=== PATIENT | female | born 1960 | race Caucasian/White ===

== ENCOUNTER → 2020-12-06 15:24 | Outpatient (CLI) | payer OTHER, SELFPAY ==
[2020-12-06 17:04] LABS: Vitamin D,25 Hydroxy 13.3 ng/mL
[2020-12-06 17:11] LABS: Free T3 2.6 pg/mL (2.18-3.98); T4 Free Direct 0.88 ng/dL (0.76-1.46); Thyroid Stim Hormone (TSH) 0.66 uIU/mL (0.358-3.74)
[2020-12-06 17:12] LABS: BNP,B-Type NATRIURETIC PEPTIDE 15.7 pg/mL (0-100)
[2020-12-06 17:14] LABS: Hemoglobin A1c 5.8 % (3.8-5.6)
[2020-12-08 16:09] LABS: Thyroid Peroxidase AB 13 IU/mL (0-34)
[2020-12-09 10:34] LABS: Thyroglobulin Antibody < 1.0 IU/mL (0.0-0.9)
== END ==
PROVIDERS: PCP Internal Medicine; Referring Provider Internal Medicine; Visit Provider Internal Medicine
DX: E78.5 Hyperlipidemia, unspecified (principal); I10 Essential (primary) hypertension; R53.83 Other fatigue; R06.00 Dyspnea, unspecified
CPT/HCPCS: 36415; 82306; 83036; 83880; 84439; 84443; 84481; 86376; 86800

== ENCOUNTER → 2020-12-10 09:33 | Outpatient (CLI) | payer SELFPAY, OTHER ==
--- NOTE | 2020-12-10 09:37 | STEWCON_ITS ---
Reason For Study: DYSPNEA/SOB Stress Results Protocol: Robbie Protocol WITH DEFINITY Maximum Predicted HR: 162 bpm Target HR: 138 bpm % Maximum Predicted HR: 102 % DurationHeart Rate Stage (mm:ss) (bpm) BP Comment BASELINE 80 122/724 CC DEFINITY TOTAL FOR TEST STAGE 1 3:00 162 148/84SOB, FATIGUE, NO CHEST PAIN STAGE 2 0:52 166 / INCREASED SOB, NO CHEST PAIN RECOVERY 112 132/70 Stress Duration: 3:52 mm:ss Maximum Stress HR: 166 bpm METS: 5 Baseline Echocardiogram Findings Stress Echo Wall motion Data Resting WM Intermediate WM Stress WM Resting Wall Motion Wall Motion Stress All segments Normal. All segments Hyperkinetic. Ejection Fraction 60 %. Ejection Fraction 70 %. Stress Results Heart rate response: Appropriate Blood pressure response: Normal resting blood pressure-appropriate response Arrhythmias: None Functional capacity: Decreased Stop secondary to: Dyspnea and fatigue. EKG Data Baseline ECG: Normal sinus rhythm. Peak exercise ECG: Somatic/motion artifact with no obvious ECG changes. Symptoms with Stress No complaint of chest discomfort during exercise or recovery. ECHO/Stress Test Echo W/Contrast Interpretation Summary Contrast injection performed Negative (adequate) stress echocardiogram Ordering Physician: Keon^Ave^^^ Referring Physician: Ave Herbert Performed By: Tonia Jackson, RDCS, RVT
== END ==
PROVIDERS: PCP Internal Medicine; Referring Provider Internal Medicine; Visit Provider Internal Medicine
DX: R06.00 Dyspnea, unspecified (principal); R53.83 Other fatigue; I10 Essential (primary) hypertension; E78.5 Hyperlipidemia, unspecified
CPT/HCPCS: 93017; 93350; Q9957; A4216; C8928

== ENCOUNTER → 2020-12-24 09:19 | Outpatient (CLI) | payer SELFPAY, OTHER ==
--- NOTE | 2020-12-24 09:22 | EKG12_ITS ---
Test Reason : DYSPNEA Blood Pressure : / mmHG Vent. Rate : 077 BPM Atrial Rate : 077 BPM P-R Int : 162 ms QRS Dur : 084 ms QT Int : 380 ms P-R-T Axes : 045 044 067 degrees QTc Int : 430 ms Normal sinus rhythm Nonspecific ST and T wave abnormality Abnormal ECG Confirmed by LELAND CABALLERO, AMERICA ([id number]), associate entertainment editor CON OCONNOR ([id number]) on 12/27/2020 1:13:22 PM Referred By: Ave Herbert Confirmed By:AMERICA HA MD
--- NOTE | 2020-12-24 09:22 | RAD_ITS ---
STUDY: X-RAY CHEST REASON FOR EXAM: Female, 60 years old. Dyspnea on exertion, chronic cough TECHNIQUE: PA and lateral views of the chest. COMPARISON: None. FINDINGS: The lungs are clear and expanded. There is no demonstrated pleural abnormality. Normal size heart. Normal mediastinum and mark. Normal visualized pulmonary arteries. Normal visualized aortic arch and descending thoracic aorta. Normal visualized thoracic spine. Normal visualized ribs, clavicles, and shoulders. There is no demonstrated abnormality of the visualized soft tissue structures of the upper abdomen. RAD/Chest PA and Lateral IMPRESSION: Normal x-ray examination of the chest. Electronically Signed: Fidel Kaplan MD at 10:07 EDT , Service support ,
== END ==
PROVIDERS: PCP Internal Medicine; Referring Provider Internal Medicine; Visit Provider Internal Medicine
DX: R06.09 Other forms of dyspnea (principal); R53.83 Other fatigue
CPT/HCPCS: 71046; 93005

== ENCOUNTER 2021-04-13 12:43 | Outpatient (CLI) | payer SELFPAY, OTHER ==
[2021-04-13 13:34] LABS: Absolute Lymphocyte Count 1.16 X10^3/uL (0.83-4.51); Absolute Neutrophil Count 1.7 X10^3/uL (2.0-7.7); Basophil# 0.02 X10^3/uL; Basophil% 0.6 % (0-1); Eosinophil# 0.02 X10^3/uL; Eosinophils% 0.6 % (0-5); Hematocrit 48.6 % (37-47); Hemoglobin 16.5 g/dL (12.0-15.0); Lymphocyte # 1.16 X10^3/ul (0.83-4.51); Lymphocyte % 33.3 % (19-41); Mean Corpuscular Hgb 30.7 pg (27.0-32.0); Mean Corpuscular Volume 90.3 fL (81-99); Mean Platelet Vol. 10.4 fl (6.2-12.0); Monocyte# 0.55 X10^3/uL; Monocyte% 15.8 % (0-10); NRBC Flagged by Analyzer 0 % (0-5); Neutrophil # 1.72 X10^3/uL (2.7-7.7); Neutrophil % 49.4 % (47-70); Platelet Count 210 K/mm3 (150-450); RBC Distribution Width CV 12.6 % (11.6-14.6); RBC Distribution Width SD 41.7 fl (35.1-43.9); Red Blood Count 5.38 M/mm3 (4.2-5.4); White Blood Count 3.5 K/mm3 (4.4-11.0)
[2021-04-13 13:49] LABS: Anion Gap 6 (5-15); BUN 9 mg/dL (7-18); BUN/Creat Ratio 11.7 RATIO (10-20); Calcium,Total 8.4 mg/dL (8.5-10.1); Chloride 104 mmol/L (98-107); Creatinine, Serum 0.77 mg/dL (0.55-1.02); EST Glomerular Filtration Rate 82 mL/min (>60); Est Glom Filt Rate - Afr Amer 99 mL/min (>60); Glucose 106 mg/dL (74-106); Magnesium 2.4 mg/dL (1.6-2.6); Potassium 3.3 mmol/L (3.5-5.1); Sodium Level 140 mmol/L (136-145)
--- NOTE | 2021-04-14 13:16 | PFT ---
INTRODUCTION: The patient is a 60-year-old female that presents for pulmonary function studies secondary to a diagnosis of exertional dyspnea. Respiratory therapy reported good patient effort. Bronchodilators were used during testing. INTERPRETATION: Forced expiration spirometry demonstrates no evidence of a large airways obstructive ventilatory defect. There was no significant response to aerosolized bronchodilators. Spirograms are of fair quality and terminate prior to 6 seconds, likely underestimating FVC. Body plethysmography was performed and reveals lung volumes to be within normal limits. Diffusing capacity by single breath CO is also within normal limits at 95% of predicted. IMPRESSION: Grossly normal pulmonary function studies.
== END 2021-04-13 23:59 | disposition short-term general hospital (02) ==
PROVIDERS: PCP Family Medicine; Referring Provider Internal Medicine Cardiovascular Disease; Visit Provider Internal Medicine Cardiovascular Disease
DX: I10 Essential (primary) hypertension (principal); E78.5 Hyperlipidemia, unspecified; R94.31 Abnormal electrocardiogram [ECG] [EKG]; R53.83 Other fatigue; R06.00 Dyspnea, unspecified
CPT/HCPCS: 36415; 80048; 83735; 85025; 94060; 94726; 94729

== ENCOUNTER 2021-04-26 13:40 | Outpatient (CLI) | payer SELFPAY, OTHER ==
--- NOTE | 2021-04-26 13:41 | ECHOD_ITS ---
Reason For Study: Dyspnea/SOB Procedure This was a 2D Doppler, Color Flow transthoracic echocardiogram. The study was technically difficult. Exam performed in department. Left Ventricle Normal LV size. Left ventricular systolic function is normal. The estimated ejection fraction is 60 %. No evidence for diastolic dysfunction. No regional wall motion abnormalities noted. Right Ventricle Normal RV size. Normal systolic function. Atria Normal left atrium. Normal right atrium. No doppler evidence for ASD. Mitral Valve There is no mitral annular calcification. Normal mitral valve. Trivial mitral valve insufficiency. Tricuspid Valve Normal tricuspid valve. Trivial tricuspid valve insufficiency. Unable to estimate RV systolic pressure/pulmonary artery pressure due to technically difficult study. Aortic Valve The aortic valve is not well visualized. Pulmonic Valve The pulmonic valve is not well visualized. Great Vessels Normal sized aortic root. Pericardium/Pleural No pericardial effusion. MMode/2D Measurements & Calculations LVIDd: 4.2 cm IVSd: 1.1 cm Ao root diam: 3.0 cm LVIDs: 2.8 cm LVPWd: 1.1 cm LA dimension: 3.7 cm RVDd: 2.8 cm FS: 33.4 % LAV(MOD-bp): 36.3 ml LA A4 area: 14.7 cm2 RA A4 area: 7.9 cm2 LAV(MOD-bp) Indexed: 19.7 ml/m2 LAV(MOD-sp2): 27.2 ml LAV(MOD-sp4): 40.1 ml Time Measurements MV dec time: 0.20 sec Doppler Measurements & Calculations MV E max atul: 105.3 cm/sec Lat Peak E' Atul: 9.4 cm/sec Med Peak E' Atul: 7.0 cm/sec MV A max atul: 83.4 cm/sec E/E' lat: 11.2 E/E' med: 15.0 MV E/A: 1.3 MV V2 max: 104.2 cm/sec MV P1/2t max atul: 104.8 cm/sec Ao V2 max: 141.5 cm/sec MV max P.3 mmHg MV P1/2t: 83.7 msec Ao max P.0 mmHg MV V2 mean: 66.9 cm/sec MV dec slope: 366.6 cm/sec2 MV mean P.0 mmHg MVA(P1/2t): 2.6 cm2 MV V2 VTI: 25.9 cm LV V1 max: 131.7 cm/sec PA V2 max: 105.9 cm/sec LV V1 max P.9 mmHg ECHO/Echo Complete Interpretation Summary The study was technically difficult. Left ventricular systolic function is normal. The estimated ejection fraction is 60 %. Trivial mitral valve insufficiency. Trivial tricuspid valve insufficiency. Unable to estimate RV systolic pressure/pulmonary artery pressure due to techni germán difficult study. No evidence for diastolic dysfunction. Ordering Physician: Yan Esparza Referring Physician: Colton Ling Performed By: Erik Marti RCS
[2021-04-26 17:33] LABS: Anion Gap 6 (5-15); BUN 12 mg/dL (7-18); BUN/Creat Ratio 16.6 RATIO (10-20); Calcium,Total 8.7 mg/dL (8.5-10.1); Chloride 107 mmol/L (98-107); Creatinine, Serum 0.72 mg/dL (0.55-1.02); EST Glomerular Filtration Rate 88 mL/min (>60); Est Glom Filt Rate - Afr Amer 106 mL/min (>60); Glucose 77 mg/dL (74-106); Potassium 3.5 mmol/L (3.5-5.1); Sodium Level 141 mmol/L (136-145)
== END 2021-04-26 23:59 | disposition home or self-care (01) ==
PROVIDERS: PCP Family Medicine; Referring Provider Internal Medicine Cardiovascular Disease; Visit Provider Internal Medicine Cardiovascular Disease
DX: R06.02 Shortness of breath (principal); R94.31 Abnormal electrocardiogram [ECG] [EKG]; R53.83 Other fatigue; I10 Essential (primary) hypertension; E87.6 Hypokalemia; E78.5 Hyperlipidemia, unspecified
CPT/HCPCS: 36415; 80048; 93306

== ENCOUNTER 2021-05-03 11:12 | Outpatient (RCR) | payer OTHER, SELFPAY ==
[2021-05-03 12:32] LABS: Prothrombin Time (Protime)PT. 12.4 SECONDS (11.7-14.9)
[2021-05-03 12:33] LABS: Partial Thromboplast Time 34.6 Seconds (24.1-36.2)
== END 2021-05-03 23:59 | disposition home or self-care (01) ==
LOC: LAB 11:12
PROVIDERS: PCP Family Medicine; Visit Provider Internal Medicine Cardiovascular Disease
DX: I10 Essential (primary) hypertension (principal); R94.31 Abnormal electrocardiogram [ECG] [EKG]; E78.5 Hyperlipidemia, unspecified; R53.83 Other fatigue; R06.09 Other forms of dyspnea
CPT/HCPCS: 36415; 85610; 85730

== ENCOUNTER 2021-05-09 06:41 | Day surgery (SDC) | payer SELFPAY, OTHER ==
[2021-05-06 08:00] VITALS: BMI 38.0
--- NOTE | 2021-05-06 16:59 | PCM.HP.BLA ---
History and Physical Date of Admission: 05/09/21 [facility] [id number] [place], [place] [id number] OFFICE VISITDate of Service: 04/07/21 MR#:[id number]: BLOSSOM VERDE ARep #:[id number]:[id number] Provider:Caitie Conner/Sex: 60/F [facility] HPI History of Present Illness Details: This is a a 60 old white female who presents today for outpatient cardiovascular consultation based upon concerns of fatigue and shortness of breath/dyspnea on exertion superimposed upon a history of hypertension with findings concerning for an abnormal ECG. She has been evaluated by her primary care physician Dr. Ling as well as by general internal medicine with Dr. Carey. She has had thyroid studies performed which appeared to be unremarkable. She had an ECG that demonstrated sinus rhythm with nonspecific ST segment abnormality. In November 2020 she underwent a stress echocardiogram. This was thought to be negative with respect to evidence of stress-induced myocardial ischemia (please see report below). In December 2020 she had a chest x-ray performed which was reported as unremarkable per radiology. She states she has been fatigued and she has noted shortness of breath and dyspnea on exertion for at least a year or longer. She does not recall any ongoing chest discomfort with these symptoms. She denies orthopnea or PND or peripheral pitting edema. There has been no report of palpitations, near-syncope, or syncope. She states Dr. Ling has checked her lipid labs in the past. She believes they have been under good control. She takes medication for her blood pressure which appears to be reasonably well controlled today. She had a follow-up ECG in the office today. She remains in sinus rhythm with subtle nonspecific ST segment abnormality. 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 Required: No Accompanied by: Self Is patient in pain?: No Allergies No Known Allergies Allergy (Unverified 04/07/21 14:52) Medications telmisartan 40 mg tablet 40 mg PO DAILY 12/06/20 [History Confirmed 04/07/21] [facility] Medical History Depressive disorder Depressive disorder, not elsewhere classified Essential hypertension Hyperlipidemia KATHRYN on CPAP Surgical History S/P cervical spinal fusion Family History Father CAD (coronary artery disease) History of coronary artery bypass surgery Heart valve replaced Mother Pulmonary fibrosis Social History Smoking Status: Never smoker alcohol intake: never substance use type: does not use caffeine: No ROS Const Const: Negative for fatigue, weakness, frequent falls, excessive sweating, weight gain or weight loss Eyes Eyes: Negative for transient loss of vision, blurry vision or change in vision ENT ENT: Negative for dizziness or balance problems Cardio Chest Pain: No Palpitations: No Edema: None Muscle aches with walking: None Resp Respiratory: Positive for SOB with activity (occasional); Negative for SOB at rest GI GI: Negative vomiting or vomiting blood/hematemesis : Negative for hematuria Musc Musc: Negative for muscle aches/ myalgia, muscle weakness, joint pain or balance problems Skin Skin: Negative non-healing lesions or rash Neuro Neuro: Negative for dizziness, lightheadedness, orthostatic symptoms, frequent falls, weakness or blurry vision Kevin Hematologic/Lymphatic: Negative for easy bleeding Endo Endo: Negative for fatigue or excessive sweating Psych Psych: Negative for anxiety or depression Allergy Allergy/Immunology: Negative for hives and Negative for rash Cardiology Exam Const Appearance: cooperative, healthy appearing, comfortable, no acute distress, well developed and well groomed Nutritional Appearance: obese Orientation: alert, awake and oriented x3 Head Head: normal to inspection, normocephalic and atraumatic Ears: hearing grossly normal bilaterally Nose: external nose normal Eyes Eyelids: eyelids normal Conjunctivae: conjunctivae normal Pupils: PERRL EOM: EOM intact bilaterally Neck Neck: normal visual inspection and full ROM Carotids: normal carotid upstroke Chest Chest inspection: normal inspection of the chest, symmetric chest movement and normal respiratory effort Auscultation: Bilateral: Clear to Auscultation Cardio Palpation: normal PMI Rate: regular rate Rhythm: regular rhythm Heart sounds: S1 normal and S2 normal GI GI: normal to inspection, soft, bowel sounds present and obese Neuro General: patient alert, patient awake, patient oriented x3 and moves all extremities Skin Skin: no rashes or lesions noted Extremities Pulses: Normal: Right Radial Pulse and Left Radial Pulse Lower Extremity Edema: None: Bilateral Psych Psychological: normal affect Supplemental Info Supplemental Information Reason For Study: DYSPNEA/SOB Stress Results Protocol: Robbie Protocol WITH DEFINITY Maximum Predicted HR: 162 bpm Target HR: 138 bpm % Maximum Predicted HR: 102 % DurationHeart Rate Stage (mm:ss) (bpm) BP Comment BASELINE 80 122/724 CC DEFINITY TOTAL FOR TEST STAGE 1 3:00 162 148/84SOB, FATIGUE, NO CHEST PAIN STAGE 2 0:52 166 / INCREASED SOB, NO CHEST PAIN RECOVERY 112 132/70 Stress Duration: 3:52 mm:ss Maximum Stress HR: 166 bpm METS: 5 Baseline Echocardiogram Findings Stress Echo Wall motion Data Resting WM Intermediate WM Stress WM Resting Wall Motion Wall Motion Stress All segments Normal. All segments Hyperkinetic. Ejection Fraction 60 %. Ejection Fraction 70 %. Stress Results Heart rate response: Appropriate Blood pressure response: Normal resting blood pressure-appropriate response Arrhythmias: None Functional capacity: Decreased Stop secondary to: Dyspnea and fatigue. EKG Data Baseline ECG: Normal sinus rhythm. Peak exercise ECG: Somatic/motion artifact with no obvious ECG changes. Symptoms with Stress No complaint of chest discomfort during exercise or recovery. ECHO/Stress Test Echo W/Contrast Interpretation Summary Contrast injection performed Negative (adequate) stress echocardiogram Labs: No Data to Display Diagnostics: Electrocardiogram Stress Echocardiogram Chest X-Ray Pulmonary: No Data to Display Assessment and Plan Assessment and Plan (1) Abnormal ECG: Status: Acute Orders: Orders: 12 Lead EKG performed by [facility] [place] Today Basic Metabolic Profile (BMP) Today Magnesium Today Echo Complete Today CBC W/Diff, Automated Today Pulmonary Function Test (Comp) Today Plan - Dr. Yan Esparza MD: She does have an abnormal ECG based upon the ST segment changes. Thus far she has not been found to have a definitive cardiovascular issue to explain this. (2) Fatigue: Status: Acute Orders: Orders: Basic Metabolic Profile (BMP) Today Magnesium Today Echo Complete Today CBC W/Diff, Automated Today Pulmonary Function Test (Comp) Today Plan - Dr. Yan Esparza MD: She remains tired and fatigued. There are no other laboratory studies available. Would not be unreasonable to check her basic labs with respect to CBC BMP, etc. to look for any obvious hematologic issues that may contribute to this or underlying metabolic issues that may contribute to this. She is also going to have a follow-up transthoracic echocardiogram to evaluate her entire cardiac anatomy and physiology with respect to any obvious abnormalities that may contribute to her symptoms. (3) Dyspnea on exertion: Status: Acute Orders: Orders: Basic Metabolic Profile (BMP) Today Magnesium Today Echo Complete Today CBC W/Diff, Automated Today Pulmonary Function Test (Comp) Today Plan - Dr. Yan Esparza MD: She has already undergone a chest x-ray and a stress echocardiogram. The results are as noted. She will be asked to have a CBC performed to evaluate for any obvious evidence of anemia that may be contributing to her symptoms At the present time it may be reasonable to perform PFTs to evaluate for any obvious obstructive or restrictive (based upon her body habitus) findings that would contribute to her shortness of breath and dyspnea on exertion. (4) Hyperlipidemia: Status: Acute Orders: Orders: Basic Metabolic Profile (BMP) Today Magnesium Today Echo Complete Today CBC W/Diff, Automated Today Pulmonary Function Test (Comp) Today Plan - Dr. Yan Esparza MD: A copy of her lipid labs from Dr. Barahona be requested for continuity of care. (5) Essential hypertension: Status: Acute Orders: Orders: 12 Lead EKG performed by [facility] [place] [place] Today Basic Metabolic Profile (BMP) Today Magnesium Today Echo Complete Today CBC W/Diff, Automated Today Pulmonary Function Test (Comp) Today Plan - Dr. Yan Esparza MD: She will continue her current antihypertensive therapy. Plan Details Additional Comments: If over time there is no obvious explanation for her symptoms based upon laboratory studies, her noninvasive cardiac and noncardiac studies, etc., and there is still any concern as to whether the possibility of CAD exists despite the results of her stress echocardiogram to explain her symptoms and findings, then she may need further evaluation in the cardiac catheterization laboratory. The above was discussed with her and she was agreeable to this approach. Thank you for allowing me to participate in the care of your patient. Please don't hesitate to call if any issues arise. This note was generated using a voice recognition system and there may be incorrect words, spelling or punctuation that were not noted when reviewing the office note prior to saving. Follow Up: 6 Weeks (PFM ) 04/07/21 (Dr. Ling: copy of lipid labs) COVID (Procedure Consent) Procedure Criteria Procedure Criteria: Yes Elective The surgeon/proceduralist and patient have discussed in detail the risk of exposure to and/or potential harm posed by the COVID-19 virus with having a surgery/procedure at this time versus the risk of delaying the surgery/procedure. It is not possible to know either the risk of delaying the surgery or procedure or chance of getting an infection with perfect accuracy, but a joint decision was made between the patient and the surgeon/proceduralist to proceed at this time with the scheduled surgery/procedure as indicated on the consent form. Coding Level of Care Code Off vis,new,level 5 Diagnoses Abnormal ECG R94.31 Fatigue R53.83 Dyspnea on exertion R06.00 Hyperlipidemia E78.5 Essential hypertension I10 Coding Level of Care Code Off vis,new,level 5 Diagnoses Abnormal ECG R94.31 Fatigue R53.83 Dyspnea on exertion R06.00 Hyperlipidemia E78.5 Essential hypertension I10 04/07/21 1543<Electronically signed by Yan Esparza MD>Date Yan Esparza MD Cosigner Signature:Date (if applicable) CC: Dr. Ave Herbert MD; Dr. Colton Ling, DO Assessment & Plan Addt'l Comments Addendum: The patient underwent additional noninvasive evaluation with a transthoracic echocardiogram on 04/26/2021 (please see results below) and PFTs on 04/14/2021 (please see results below). Interpretation Summary The study was technically difficult. Left ventricular systolic function is normal. The estimated ejection fraction is 60 %. Trivial mitral valve insufficiency. Trivial tricuspid valve insufficiency. Unable to estimate RV systolic pressure/pulmonary artery pressure due to technically difficult study. No evidence for diastolic dysfunction. PFTs: INTRODUCTION: The patient is a 60-year-old female that presents for pulmonary function studies secondary to a diagnosis of exertional dyspnea. Respiratory therapy reported good patient effort. Bronchodilators were used during testing. INTERPRETATION: Forced expiration spirometry demonstrates no evidence of a large airways obstructive ventilatory defect. There was no significant response to aerosolized bronchodilators. Spirograms are of fair quality and terminate prior to 6 seconds, likely underestimating FVC. Body plethysmography was performed and reveals lung volumes to be within normal limits. Diffusing capacity by single breath CO is also within normal limits at 95% of predicted. IMPRESSION: Grossly normal pulmonary function studies. Based upon review of the patients history and findings and clinical concerns she has been offered further cardiac evaluation with diagnostic right / left cardiac catheterization procedure. The procedure and risks were discussed with the patient. She grants consent. I have re-examined the patient. There are no clinical changes since date of exam
[2021-05-09 08:26] LABS: Base Excess 2 mmol/L (-2 to +2); Bicarbonate 26.8 mmol/L (22-26); Blood Gas Specimen Type ART; PO2 67 mmHG (75-100); SO2 93 % (95-99); Total Carbon Dioxide 28 mmol/L; pH 7.38 (7.35-7.45)
[2021-05-09 08:45] LABS: Blood Gas Specimen Type VEN; VBG BASE EXCESS 3 mmol/L (-1.0-3.5); VBG Bicarbonate 29 mmol/L (22-26); VBG PO2 39 mmHg (25-40); VBG SO2 71 % (50-70); VBG TCO2 30 mmol/L (23-33); VBG pCO2 49.7 mmHg (41-51); VBG pH 7.37 (7.32-7.42)
[2021-05-09 09:16] LABS: Blood Gas Specimen Type VEN; VBG BASE EXCESS -2 mmol/L (-1.0-3.5); VBG Bicarbonate 23 mmol/L (22-26); VBG PO2 40 mmHg (25-40); VBG SO2 74 % (50-70); VBG TCO2 24 mmol/L (23-33); VBG pH 7.37 (7.32-7.42)
[2021-05-09 09:16] LABS: Blood Gas Specimen Type VEN; VBG BASE EXCESS 2 mmol/L (-1.0-3.5); VBG Bicarbonate 27 mmol/L (22-26); VBG PO2 37 mmHg (25-40); VBG SO2 68 % (50-70); VBG TCO2 29 mmol/L (23-33); VBG pCO2 48.4 mmHg (41-51); VBG pH 7.36 (7.32-7.42)
--- NOTE | 2021-05-09 09:53 | CL.D_ITS ---
Patient Name: BLOSSOM VERDE Study Date: 05/09/2021 Performing: Yan Esparza MD Ht: 59.84 inches 152 cm : 1960 Wt: 194.01 lbs 88 kg Age: 60 Gender: female BSA: 1.84 PROCEDURE(S) PERFORMED DC05-(55451)RHC/LHC/COR/LV CLINICAL PROFILE AND INDICATIONS Indications: Suspected CAD Heart Failure: None Stress/Imaging Date: 12/10/2020tress Echocardiogram: Negative Angina Classification Anginal Classification w/in 2 Weeks: Anginal Equivalent Dyspnea CAD Presentations: Other: dyspnea on exertion; fatigue CONCLUSIONS Right heart pressures - Normal The patient has normal pulmonary hemodynamics. Intracardiac shunting: None Elevated Left Ventricular End Diastolic Pressure (mild) Normal LV size, wall motion,and systolic function LVEF: by LV gram 65 % Normal coronary arteries RECOMMENDATIONS Risk factor modification Medical therapy DESCRIPTION OF PROCEDURE The patient arrived to the procedure lab. The risks and benefits of the procedure as well as a full d escription of our services here and current unavailability of surgical backup were fully explained to the patient and/or their significant other prior to the catheterization. The Timeout was completed, verifying the correct patient and procedure. The patient's procedural site was prepped and draped in the usual fashion. Local anesthetic was given subcutaneously to right brachial region with Lidocaine 2%. Local anesthetic was given subcutaneously to right radial region with Lidocaine 2%. Using a modif ied Seldinger technique, arterial access was obtained via the right radial artery, a 6Fr sheath was i nserted. Venous access was obtained via the right brachiocephalic vein, a 7Fr sheath was inserted. A 7Fr thermal dilution catheter was inserted and right heart pressures were recorded, it was then advan elle to PA position for cardiac outputs. Thermal dilution cardiac outputs were then recorded. O2 saturations were then obtained. Left Ventriculography was performed in [place] projection us ing a 5 Fr. Pigtail catheter. LV to AO pullback pressures were then recorded. The Thermal dilution ca theter was then removed. Left Coronary Artery selective angiography was performed in multiple views u sing a 5 Fr. JL3.5 catheter. Right Coronary Artery selective angiography was then performed in multip le views using a 5 Fr. JR 4 catheter.The arterial sheath was pulled and a TR Band was applied for hem ostasis. The venous sheath was then pulled and manual compression applied until hemostasis achieved CORONARY ANGIOGRAPHY DOMINANCE: Right Dominant LEFT HEART ASSESSMENT Left Ventricular Ejection Fraction: by LV Gram 65 % Normal LV wall motion Elevated Left Ventricular End Diastolic Pressure LVEDP: 15 mmHg RIGHT HEART ASSESSMENT Thermal CO: 5.39 Thermal CI: 2.93 Bob CO: 5.74 Bob CI: 3.12 PW: 14 11 PA: 30/8 18 RV: 28/2 7 RA: 11/22 4 PVR: 104 SVR: 1514 Aortic Valve Area: >3.50 Aortic Valve Index: 1.9 Aortic Valve Mean Gradient: 6.4 Mitral Valve Area: >3.50 Mitral Valve index: 1.9 Mitral Valve Mean Gradient: 10.5 Right Heart pressures - normal Intracardiac shunting: None LEFT MAIN: Angiographically normal LEFT ANTERIOR DESCENDING ARTERY: Angiographically normal CIRCUMFLEX ARTERY: Angiographically normal RIGHT CORONARY ARTERY: Angiographically normal AORTIC ROOT: Angiographically normal COMPLICATIONS No Complications PROCEDURE MEDICATIONS Versed 1 mg IV Fentanyl 50 mcg IV Versed 1 mg IV Fentanyl 50 mcg IV Heparin given IA 05/09/2021 08:45:36 Nitro 100 mcg IC 05/09/2021 09:22:46 Verapamil 2.5mg, Ntg 100mcgs, 3000 units of Heparin given IA 05/09/2021 08:45:36 SUMMARY OF HEMODYNAMIC DATA Time AIR REST ECG 07:06:25 RA 9/6 (4) SV 08:39:24 RV 28/2, 7 08:39:45 PW (11) PV 08:40:13 PA 30/8 (18) PA 08:40:47 LV 134/-2, 15 09:03:38 PW (11) 09:03:38 LV 127/-2, 16 09:03:45 PW 16 (12) 09:03:45 LV 133/8, 17 09:05:38 PW (17) 09:05:38 LV 129/8, 19 09:05:45 PW (17) 09:05:45 LVp 139/2, 21 09:06:01 AOp 157/85 (113) 09:06:06 AO 145/80 (106) SA 09:06:15 PA 34/11 (24) 09:06:36 RV 35/6, 12 09:06:55 RA 14/11 (9) 09:09:09 AO 133/79 (105) 09:23:47 Valve Area (c P-P/ms Time AIR REST Mitral 3.50 10.5 mn/174 ms 09:03:45 Aortic 3.50 6.4 mn/58 ms 09:06:01 Type SV CO (l/m) CI (l/m/ HR Time AIR REST Thermal 65.70 5.39 2.93 82 07:06:25 Bob 70.00 5.74 3.12 82 07:06:25 Label % O2 Pres/Loc Time AIR REST AO 93 PV 09:15:50 PA 71 PA 09:16:14 RA 74 SV 09:16:25 IVC 68 09:16:41 Signed By Yan Esparza MD On 05/09/2021 09:52:25 Yan Esparza MD
== END 2021-05-09 23:59 | disposition home or self-care (01) ==
PROVIDERS: PCP Family Medicine; Referring Provider Internal Medicine Cardiovascular Disease; Visit Provider Internal Medicine Cardiovascular Disease
DX: R94.31 Abnormal electrocardiogram [ECG] [EKG] (principal); R06.09 Other forms of dyspnea; R53.83 Other fatigue; I10 Essential (primary) hypertension; E78.5 Hyperlipidemia, unspecified; E66.9 Obesity, unspecified; G47.33 Obstructive sleep apnea (adult) (pediatric); Z82.49 Family history of ischemic heart disease and other diseases of the circulatory system
CPT/HCPCS: 82803; 93460; 99152; 99153; J7040; C1751; C1769; C1894; Q9967

== ENCOUNTER 2021-06-01 12:35 | Outpatient (CLI) | payer SELFPAY, OTHER ==
--- NOTE | 2021-06-01 12:39 | MRI_ITS ---
We are attempting to reach an attending provider to discuss findings. An addendum with communication details will be sent when the communication is complete. STUDY: MRI BRAIN WITH AND WITHOUT CONTRAST REASON FOR EXAM: Female, 60 years old. LOSS OF VISION LEFT EYE TECHNIQUE: Standardized multiplanar fat and water weighted pulse sequences were obtained. IV 18cc dotarem was administered for the contrast portion of the examination. COMPARISON: None. 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 Anterior cerebral arteries are located along the dorsal margin of the mass. The mass extends into the suprasellar cistern. Chiasm is mildly depressed inferiorly. There is probably tumor bilaterally in the supraorbital fissures. Exact relationship of the tumor to optic nerves is difficult to evaluate on general brain exam. The tumor is in contact with superior portions of the paraclinoid carotid. Carotid flow voids are preserved. The tumor does not extend through the cribriform plate into the ethmoid sinus. There is local osseous hypertrophic benign reaction along the planum and anterior clinoid. The tumor is in contact with the medial superior portions of the orbital beaver. Exact relationship between the tumor and orbits with respect to local invasion can be reevaluated for on dedicated orbital imaging. Most of the parenchymal margin is well demarcated. However, portions of brain tumor interface are not well seen due to motion related artifact. Ventricles are normal size with frontal horn compression. There is compression of anterior corpus callosum. Third and fourth ventricles are normal. 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 Neurosurgical consultation is advised. Mass effect on the chiasm, refer to dedicated MR orbits/sella for delineation of tumor/optic nerve relationship and possible local intraorbital extension. Contact between the tumor and ACAs and ICAs without vascular occlusion. Additional dedicated imaging can be performed to evaluate for possible partial vascular encasement if surgical therapy is contemplated. Electronically Signed: Crystal Javier MD at 14:48 EDT ,
[2021-06-01 13:06] LABS: CREATININE FINGERSTICK < 0.6 mg/dL (0.55-1.02); EGFR FINGERSTICK > 60.0000 mL/min (>60)
== END 2021-06-01 23:59 | disposition home or self-care (01) ==
PROVIDERS: PCP Family Medicine; Referring Provider Nurse Practitioner Family; Visit Provider Nurse Practitioner Family
DX: D32.0 Benign neoplasm of cerebral meninges (principal); H54.7 Unspecified visual loss
CPT/HCPCS: 70553; A9575; A4216

== ENCOUNTER 2021-06-01 15:16 | Emergency (ER) | payer OTHER, SELFPAY ==
[2021-06-01 15:17] VITALS: BP 150/74; PULSE 87; RESP 16; TEMP 36.6; O2SAT 95; BMI 37.0
--- NOTE | 2021-06-01 15:29 | EX.ED.DYSGE1 ---
HPI History of Present Illness Chief Complaint: Neuro S/Sx Detail of Chief Complaint: Vision changes Informant: patient and spouse/S.O. Onset/Context/Timing Onset: Weeks (3) Context: Gradual Onset Timing: Continuous Quality: Blurry Location: Left eye mostly Current Severity: Severe Maximum Severity: Severe Worsened by: nothing Relieved by: nothing Associated Symptoms Associated Symptoms: none Narrative Narrative: Patient brought to the ER from MRI for abnormal imaging showing a large brain mass and they were unable to get a hold of anyone in the office, patient states the office is closed on Wednesdays which is probably why. Patient was being worked up as an outpatient because of abnormal vision for the last 3 weeks gradual in onset mostly blurring in the left eye, she can see light in in all benavides, and her right eye mostly is pretty good she states. She already saw an eye doctor and then her doctor sent her for this MRI. 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 She denies any other neurologic symptoms. No problems with balance or walking or strength or sensory in her arms or legs. She does have occasional mild frontal headaches, but states she had those occasionally before the vision problems as well. [facility] Medical History Depressive disorder Depressive disorder, not elsewhere classified Essential hypertension Hyperlipidemia Hypokalemia KATHRYN on CPAP Home Medications telmisartan 40 mg tablet 40 mg PO DAILY 12/06/20 [History Last Taken 05/09/21] atorvastatin 20 mg tablet 20 mg PO QHS #30 tab 04/08/21 [Rx Last Taken Unknown] potassium chloride 20 mEq tablet,extended release 20 meq PO .COMPLEX #30 tab 04/15/21 [Rx Last Taken Unknown] aspirin 81 mg tablet,delayed release 81 mg PO DAILY 05/03/21 [History Last Taken 05/09/21] Allergy/AdvReac Type Severity Reaction Status Date / Time No Known Allergies Allergy Unverified 06/01/21 15:17 Family History Father CAD (coronary artery disease) History of coronary artery bypass surgery Heart valve replaced Mother Pulmonary fibrosis Surgical History History of left heart catheterization (LHC) (~05/09/21) S/P cervical spinal fusion Social History Smoking Status: Never smoker alcohol intake: never substance use type: does not use caffeine: No ROS ROS ED Constitutional Constitutional ED: Denies chills or fever(s) Eyes Eyes: Reports as per HPI, blurry vision left and change in vision; Denies diplopia ENT ENT ED: Denies rhinorrhea or sore throat Cardiovascular Cardiovascular: Denies chest pain or palpitations Respiratory/Chest Respiratory/Chest: Denies cough or dyspnea Gastrointestinal Gastrointestinal: Denies abdominal pain, diarrhea, nausea or vomiting Genitourinary Genitourinary ED: Denies dysuria or hematuria Musculoskeletal Musculoskeletal: Denies back pain or neck pain Integumentary Denies abscess or rash Neurologic Neurologic: Reports headache(s); Denies paresthesias or weakness Psychiatric Psychiatric: Denies anxiety or suicidal thoughts EXAM Physical Exam Const Vital Signs: 06/01/21 15:17 06/01/21 16:34 06/01/21 18:00 Temperature 97.9 F Temperature Source Temporal Pulse Rate 87 86 83 Respiratory Rate 16 14 Blood Pressure 150/74 H 137/83 H 139/73 H Blood Pressure Mean 99 101 95 Pulse Ox 95 99 Oxygen Delivery Method Room Air Room Air 06/01/21 20:28 Temperature Temperature Source Pulse Rate 88 Respiratory Rate 19 H Blood Pressure 138/67 H Blood Pressure Mean 90 Pulse Ox 97 Oxygen Delivery Method Positive well nourished and well developed General Appearance ED: well developed and NAD HEENT Reports moist mucous membranes normocephalic and atraumatic Eyes PERRL and EOMs intact bilaterally Eyes Narrative: No APD Neck full ROM and supple Resp normal respiratory effort and clear to auscultation bilaterally Cardio regular rate, regular rhythm and no murmurs GI non-tender and non-distended Auscultation: normoactive bowel sounds Palpation: soft Back/Spine no CVA tenderness General Back: other FROM Extremity normal to inspection General Extremety ED: Negative for edema, pulses abnormal or tenderness General Extremity: Negative for edema or pulses abnormal Neuro oriented x3, CN's II-XII intact bilaterally, no sensory deficits noted, deep tendon reflexes 2+ bilaterally and gait normal Neuro Narrative: Normal [id number] and lynk-fz-byaw bilaterally Sensorium / Orientation: awake and alert Motor Exam: strength 5/5 throughout Skin no rashes or lesions noted and no wounds MDM MDM MDM Narrative Medical decision making narrative: Review the images and the radiology report, which includes the presence of bilateral frontal lobe vasogenic edema associated with the mass, and compression of part of the optic chiasm. I discussed with neurosurgery at [facility], he advised sending the patient there in transfer for further evaluation and treatment. Discussed with family they are comfortable with that plan. Patient transferred by ground. Lab Data Attestation: I reviewed the patient's lab results. Labs: Laboratory Results - last 24 hr 06/01/21 06/01/21 06/01/21 15:50 15:50 16:08 WBC 8.2 RBC 4.50 Hgb 14.0 Hct 42.3 MCV 94.0 MCH 31.1 MCHC 33.1 RDW Std Deviation 45.1 H RDW Coeff of Rachna 13.2 Plt Count 243 MPV 10.4 Immature Gran % (Auto) 0.200 Neut % (Auto) 76.2 H Lymph % (Auto) 12.6 L [place] % (Auto) 9.3 Eos % (Auto) 1.2 Baso % (Auto) 0.5 Absolute Neuts (auto) 6.2 Absolute Lymphs (auto) 1.03 Nucleated RBC % 0 Sodium 141 Potassium 3.6 Chloride 110 H Carbon Dioxide 28.0 Anion Gap 3 L BUN 14 Creatinine 0.76 Estim Creat Clear Calc 57.96 Est GFR (MDRD) Af Amer 100 Est GFR (MDRD) Non-Af 83 BUN/Creatinine Ratio 18.4 Glucose 109 H Calcium 8.4 L POC Glucose 145 H Radiography Diagnostic Testing: MRI/Brain W/WO Contrast IMPRESSION: 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 Neurosurgical consultation is advised. Mass effect on the chiasm, refer to dedicated MR orbits/sella for delineation of tumor/optic nerve relationship and possible local intraorbital extension. Contact between the tumor and ACAs and ICAs without vascular occlusion. Additional dedicated imaging can be performed to evaluate for possible partial vascular encasement if surgical therapy is contemplated. Electronically Signed: Crystal Javier MD at 14:48 EDT Discharge Plan Triage Chief Complaint: Neuro S/Sx ED Provider: Benton Culp Dx/Rx/DC Orders Clinical Impression: Meningioma, cerebral, Alteration in vision Prescriptions: No Action telmisartan 40 mg tablet 40 mg PO DAILY RF: 0 aspirin [Adult Low Dose Aspirin] 81 mg tablet,delayed release (DR/EC) 81 mg PO DAILY RF: 0 atorvastatin 20 mg tablet 20 mg PO QHS Qty: 30 RF: 12 potassium chloride 20 mEq tablet extended release 20 meq PO .COMPLEX Qty: 30 RF: 12 Primary Care Provider: Colton Ling Referrals: Colton Ling DO [Primary Care Provider] - Disposition Disposition: Acute Care Hospital Discharge Location: [facility] Discharge Date/Time: 06/01/21 20:30
[2021-06-01 15:52] VITALS: BMI 38.5
[2021-06-01 16:10] LABS: Absolute Lymphocyte Count 1.03 X10^3/uL (0.83-4.51); Absolute Neutrophil Count 6.2 X10^3/uL (2.0-7.7); Basophil# 0.04 X10^3/uL; Basophil% 0.5 % (0-1); Eosinophils% 1.2 % (0-5); Hematocrit 42.3 % (37-47); Lymphocyte # 1.03 X10^3/ul (0.83-4.51); Lymphocyte % 12.6 % (19-41); Mean Corp Hgb Conc 33.1 g/dL (32-36); Mean Corpuscular Hgb 31.1 pg (27.0-32.0); Mean Platelet Vol. 10.4 fl (6.2-12.0); Monocyte# 0.76 X10^3/uL; Monocyte% 9.3 % (0-10); NRBC Flagged by Analyzer 0 % (0-5); Neutrophil # 6.22 X10^3/uL (2.7-7.7); Neutrophil % 76.2 % (47-70); Platelet Count 243 K/mm3 (150-450); RBC Distribution Width CV 13.2 % (11.6-14.6); RBC Distribution Width SD 45.1 fl (35.1-43.9); White Blood Count 8.2 K/mm3 (4.4-11.0)
[2021-06-01 16:15] LABS: Bedside Glucose 145 mg/dL (74-106)
[2021-06-01 16:25] LABS: Anion Gap 3 (5-15); BUN 14 mg/dL (7-18); BUN/Creat Ratio 18.4 RATIO (10-20); Calcium,Total 8.4 mg/dL (8.5-10.1); Chloride 110 mmol/L (98-107); Creatinine, Serum 0.76 mg/dL (0.55-1.02); EST Glomerular Filtration Rate 83 mL/min (>60); Est Glom Filt Rate - Afr Amer 100 mL/min (>60); Estimated Creatinine Clearance 57.96 ml/min; Glucose 109 mg/dL (74-106); Potassium 3.6 mmol/L (3.5-5.1); Sodium Level 141 mmol/L (136-145)
[2021-06-01 16:34] VITALS: BP 137/83; PULSE 86
[2021-06-01 18:00] VITALS: BP 139/73; PULSE 83; RESP 14; O2SAT 99
--- NOTE | 2021-06-01 18:28 | ED.RN ---
PH[facility]ANS ETA 2-3 HOURS
--- NOTE | 2021-06-01 18:49 | ED.RN ---
Report called to [facility], . Informed patient spouse of visitation hours being 8a-8p.
[2021-06-01 20:28] VITALS: BP 138/67; PULSE 88; RESP 19; O2SAT 97
== END 2021-06-01 20:30 | disposition short-term general hospital (02) ==
LOC: ED 15:45
PROVIDERS: Emergency Provider Emergency Medicine; PCP Family Medicine; Visit Provider Emergency Medicine
DX: D32.0 Benign neoplasm of cerebral meninges (principal); I10 Essential (primary) hypertension; E87.6 Hypokalemia; G47.33 Obstructive sleep apnea (adult) (pediatric); Z79.82 Long term (current) use of aspirin; Z79.899 Other long term (current) drug therapy
CPT/HCPCS: 80048; 82962; 85025; 99285

== ENCOUNTER 2021-07-05 18:42 | Emergency (ER) | payer OTHER, SELFPAY ==
[2021-07-05 18:43] VITALS: BP 187/100; PULSE 124; RESP 21; TEMP 36.8; O2SAT 93; BMI 36.1
--- NOTE | 2021-07-05 19:11 | EKG12_ITS ---
Test Reason : DYSRHYTHMIA Blood Pressure : / mmHG Vent. Rate : 116 BPM Atrial Rate : 116 BPM P-R Int : 152 ms QRS Dur : 088 ms QT Int : 346 ms P-R-T Axes : 060 060 -01 degrees QTc Int : 480 ms Sinus tachycardia Otherwise normal ECG Confirmed by SAHRMILA CABALLERO, ROLLY ([id number]), video tape editor CON OCONNOR ([id number]) on 07/07/2021 10:57:24 AM Referred By: PRIYA Confirmed By:ROLLY DOLL MD
--- NOTE | 2021-07-05 19:11 | CT_ITS ---
STUDY: CT BRAIN WITHOUT CONTRAST REASON FOR EXAM: Female, 60 years old. Headache post surgery RADIATION DOSAGE (If Supplied By Facility): CTDIvol = ( 44.99 ) mGy, DLP = ( 829.85 ) mGycm TECHNIQUE: Transaxial CT imaging of the brain was performed without administration of intravenous contrast material. Individualized dose optimization techniques were used for this CT. COMPARISON: MRI June 01, 2021. FINDINGS: Normal soft tissue structures. There is frontal craniotomy. There is mild pneumocephalus. There is dural thickening and/or small amount of subdural hemorrhage. There is mild cerebral atrophy with widening of the extra-axial spaces and ventricular dilatation. There is resection of previously noted soft tissue component of frontal mass consistent with meningioma. There is 2.4 x 1.4 cm residual calcified component at the planum sphenoidale. There are regions of edema in the frontal white matter. Normal basal ganglia and thalami. Normal brainstem. Normal cerebellum. There are no findings of an acute ischemic infarction. Normal visualized paranasal sinuses. CT/Brain/Head without Contrast IMPRESSION: Postoperative change with resection of soft tissue component of frontal meningioma. There is residual calcified component. There is edema in the frontal lobes. Electronically Signed: Benton Fofana MD at 21:30 EDT Reading Location ID and State: [facility] / [place] , Service support ,
--- NOTE | 2021-07-05 19:13 | CT_ITS ---
STUDY: CT ABDOMEN AND PELVIS WITHOUT CONTRAST REASON FOR EXAM: Female, 60 years old. Abdominal pain RADIATION DOSAGE (If Supplied By Facility): CTDIvol = ( 21.18 ) mGy, DLP = ( 1010.62 ) mGycm TECHNIQUE: Transaxial images were obtained from the dome of the diaphragm to the symphysis pubis without oral contrast, and without intravenous contrast. Sagittal and coronal images were reconstructed. Individualized dose optimization techniques were used for this CT. COMPARISON: None. FINDINGS: The visualized lung bases are unremarkable. The visualized portions of the heart are within normal limits. There is decreased attenuation of the liver consistent with steatosis. There are multiple gallstones. Normal spleen. Normal pancreas. Normal bilateral adrenal glands. There is a 0.2 cm calcification of the right kidney. There is 0.3 cm calcification of the left kidney. There is no hydronephrosis. Normal visualized stomach. Normal small intestine. Normal colon. The appendix is visualized and appears normal. Normal abdominal aorta. Normal inferior vena cava. Normal retroperitoneum. Normal urinary bladder. Normal visualized uterus. There is no free fluid in the abdomen or pelvis. Normal abdominal wall. There is degenerative change at L4-5. CT/Abdomen/Pelvis without Cont IMPRESSION: Multiple gallstones. Fatty infiltration of the liver. Small renal stones. No hydronephrosis. Electronically Signed: Benton Fofana MD at 21:20 EDT ,
--- NOTE | 2021-07-05 19:13 | EX.ED.DYSGE1 ---
HPI History of Present Illness Chief Complaint: Weakness Detail of Chief Complaint: Weakness and not feeling well since yesterday Informant: patient Narrative Narrative: Patient presents to the emergency department complaint of just generally not feeling well since yesterday. Patient tells me she had surgery on June 13 to remove a noncancerous brain tumor. Patient states that since yesterday she has been having a lot of abdominal bloating and belching. She is complaining of a headache with photophobia. Patient feels short of breath. She has had some swelling in her neck since surgery. She denies any fevers. She denies urinary symptoms. Prior similar symptoms: No PFSH PFSH Medical History Depressive disorder Depressive disorder, not elsewhere classified Essential hypertension Hyperlipidemia Hypokalemia KATHRYN on CPAP Home Medications telmisartan 40 mg tablet 20 mg PO DAILY 12/06/20 [History Last Taken 05/09/21] atorvastatin 20 mg tablet 20 mg PO QHS #30 tab 04/08/21 [Rx Last Taken Unknown] dexamethasone 4 mg PO DAILY 07/05/21 [History Last Taken Unknown] levetiracetam [Keppra] 500 mg PO BID 07/05/21 [History Last Taken Unknown] oxycodone 5 mg PO Q6H PRN 07/05/21 [History Last Taken Unknown] potassium chloride 20 meq PO DAILY 07/05/21 [History Last Taken Unknown] Allergy/AdvReac Type Severity Reaction Status Date / Time No Known Allergies Allergy Verified 07/05/21 18:50 Family History Father CAD (coronary artery disease) History of coronary artery bypass surgery Heart valve replaced Mother Pulmonary fibrosis Surgical History History of left heart catheterization (LHC) (~05/09/21) S/P cervical spinal fusion Social History Smoking Status: Never smoker alcohol intake: never substance use type: does not use caffeine: No ROS ROS ED Constitutional Constitutional ED: Reports systems reviewed and no addt'l complaints, except as documented; Denies body ache(s), change in weight or chills Eyes Eyes: Denies acute decrease in peripheral vision, change in vision, double vision or loss of vision ENT ENT ED: Reports none; Denies ear pain, lip swelling, loss taste/smell, neck pain, otalgia or sore throat Cardiovascular Cardiovascular: Reports none; Denies abdominal pain, chest pain with activity, leg edema, lightheadedness, palpitations, rapid heart rate or syncope Respiratory/Chest Respiratory/Chest: Reports none and dyspnea; Denies change in mental status, dry cough, hemoptysis, shortness of breath at rest or shortness of breath with exertion Gastrointestinal Gastrointestinal: Reports none, abdominal pain, nausea and other Details: Belching ; Denies change in stool character, diarrhea, hematemesis, hematochezia, melena, rectal bleeding or vomiting Genitourinary Genitourinary ED: Reports none; Denies abdominal discomfort, anuria, dysuria, genital pain or polyuria Musculoskeletal Musculoskeletal: Reports none; Denies arthralgias, back pain, difficulty walking, extremity pain, muscle weakness or myalgias Integumentary Reports none; Denies abscess or rash Neurologic Neurologic: Reports none and headache(s); Denies abnormal gait, confusion, focal weakness, frequent falls, loss of vision, numbness, paresthesias, radicular pain, vertigo or weakness Psychiatric Psychiatric: Reports systems reviewed and no addt'l complaints, except as documented and none; Denies behavioral changes, confusion, difficulty concentrating, hallucinations, suicidal ideation, tactile hallucinations or visual hallucinations Endocrine Endocrinology: Denies none, cold intolerance, excessive sweating, fatigue or heat intolerance Hematologic/Lymphatic Hematologic/Lymphatic: Reports none; Denies anemia, easy bleeding or easy bruising Allergic/Immunologic Allergic/Immunologic ED: Denies as per HPI, none, lip swelling, mouth swelling, throat swelling, tongue swelling or hives EXAM Physical Exam Const Vital Signs: 07/05/21 18:43 07/05/21 18:50 07/05/21 21:46 Temperature 98.3 F Temperature Source Oral Pulse Rate 124 H 103 H Respiratory Rate 21 H 18 Respiratory Effort Normal Non-Labored Blood Pressure 187/100 H 165/96 H Blood Pressure Mean 129 119 Pulse Ox 93 98 Oxygen Delivery Method Room Air Room Air 07/05/21 23:09 Temperature Temperature Source Pulse Rate 114 H Respiratory Rate 18 Respiratory Effort Blood Pressure 172/89 H Blood Pressure Mean 116 Pulse Ox 96 Oxygen Delivery Method Room Air Positive well nourished and well developed General Appearance ED: well developed and NAD HEENT Reports TM's clear and moist mucous membranes HEENT Narrative: Patient with some edema of the right side of the neck. Patient has well-healing scar over the frontal scalp. normocephalic and atraumatic; Negative for trauma or tenderness Tympanic Membrane ED: Yes TM's clear Eyes PERRL and EOMs intact bilaterally General Eye ED: Negative for pale conjunctiva or scleral icterus Neck no lymphadenopathy, supple and no JVD General: Negative for tenderness Chest Wall inspection of chest normal and palpation of chest normal Chest: Negative for tenderness Resp normal respiratory effort and clear to auscultation bilaterally Effort and Inspection: Negative for respiratory distress or pain with movement Auscultation: Negative for rhonchi, wheezes or diminished lung sounds Cardio regular rhythm, S1 normal heart sound, S2 normal heart sound and no murmurs Rate: tachycardic Peripheral Pulses: pulses 2+ throughout GI normal to inspection, nondistended, normoactive bowel sounds, soft to palpation, non-tender, non-distended and no masses Back/Spine no CVA tenderness and no thoracic nor lumbar tenderness Extremity normal to inspection General Extremety ED: Negative for edema General Extremity: Negative for edema Neuro oriented x3, CN's II-XII intact bilaterally, no sensory deficits noted and gait normal Sensorium / Orientation: awake, alert, oriented to person, oriented to place and oriented to time Motor Exam: strength 5/5 throughout and strength abnormal Psych mental status grossly normal Skin no rashes or lesions noted and no wounds MDM MDM MDM Narrative Medical decision making narrative: IV line established on arrival. Lab work essentially unremarkable. D-dimer was elevated therefore CTA was obtained to rule out PE and this was positive for bilateral pulmonary emboli. CT scan of the brain without contrast showed postoperative changes with some frontal lobe edema. CT scan of the abdomen pelvis showed gallstones otherwise no acute disease process. At this point patient is just generally weak and she has been having severe headaches. Recommended transfer back to facility where she had her surgery. I will discuss with them starting patient on anticoagulation. Plan will be to transfer patient back to [facility]. Lab Data Attestation: I reviewed the patient's lab results. Labs: Laboratory Results - last 24 hr 07/05/21 07/05/21 07/05/21 19:20 19:20 19:20 WBC RBC Hgb Hct MCV MCH MCHC RDW Std Deviation RDW Coeff of Rachna Plt Count MPV Immature Gran % (Auto) Neut % (Auto) Lymph % (Auto) [place] % (Auto) Eos % (Auto) Baso % (Auto) Absolute Neuts (auto) Absolute Lymphs (auto) Nucleated RBC % D-Dimer Quant (PE/DVT) 2.41 H* Sodium 141 Potassium 3.2 L Chloride 106 Carbon Dioxide 26.0 Anion Gap 9 BUN 4 L Creatinine 0.78 Estim Creat Clear Calc 56.47 Est GFR (MDRD) Af Amer 97 Est GFR (MDRD) Non-Af 80 BUN/Creatinine Ratio 5.1 L Glucose 110 H Lactic Acid 1.5 Calcium 9.1 Total Bilirubin 0.40 AST 32 ALT 36 Alkaline Phosphatase 91 Troponin I High Sens 4 Total Protein 7.5 Albumin 3.7 Globulin 3.8 Albumin/Globulin Ratio 1.0 Urine Color Urine Clarity Urine pH Ur Specific [place] Urine Protein Urine Glucose (UA) Urine Ketones Urine Occult Blood Urine Nitrite Urine Bilirubin Urine Urobilinogen Ur Leukocyte Esterase Urine RBC Urine WBC Ur Squamous Epith Cells Urine Bacteria Urine Mucus 07/05/21 07/05/21 19:20 20:50 WBC 6.1 RBC 3.79 L Hgb 11.8 L Hct 36.7 L MCV 96.8 MCH 31.1 MCHC 32.2 RDW Std Deviation 55.9 H RDW Coeff of Rachna 15.9 H Plt Count 342 MPV 9.8 Immature Gran % (Auto) 0.500 Neut % (Auto) 69.9 Lymph % (Auto) 16.6 L [place] % (Auto) 11.8 H Eos % (Auto) 0.5 Baso % (Auto) 0.7 Absolute Neuts (auto) 4.3 Absolute Lymphs (auto) 1.01 Nucleated RBC % 0 D-Dimer Quant (PE/DVT) Sodium Potassium Chloride Carbon Dioxide Anion Gap BUN Creatinine Estim Creat Clear Calc Est GFR (MDRD) Af Amer Est GFR (MDRD) Non-Af BUN/Creatinine Ratio Glucose Lactic Acid Calcium Total Bilirubin AST ALT Alkaline Phosphatase Troponin I High Sens Total Protein Albumin Globulin Albumin/Globulin Ratio Urine Color Yellow Urine Clarity Clear Urine pH 7.0 Ur Specific [place] 1.010 Urine Protein Negative Urine Glucose (UA) Normal Urine Ketones 15 H Urine Occult Blood Negative Urine Nitrite Negative Urine Bilirubin Negative Urine Urobilinogen Normal Ur Leukocyte Esterase Negative Urine RBC 0 SEEN Urine WBC 0 SEEN Ur Squamous Epith Cells 0-5 SEEN Urine Bacteria 0 SEEN Urine Mucus 0 SEEN Radiography Diagnostic Testing: Clinical Impression(s) from Imaging Studies Brain CT 07/05/21 19:11 IMPRESSION: Postoperative change with resection of soft tissue component of frontal meningioma. There is residual calcified component. There is edema in the frontal lobes. Electronically Signed: Benton Fofana MD at 21:30 EDT Reading Location ID and State: [facility] / [place] , Service support , Abdomen/Pelvis CT 07/05/21 19:13 IMPRESSION: Multiple gallstones. Fatty infiltration of the liver. Small renal stones. No hydronephrosis. Electronically Signed: Benton Fofana MD at 21:20 EDT Reading Location ID and State: [facility] / [place] , Service support , Chest X-Ray 07/05/21 19:30 IMPRESSION: No acute cardiopulmonary process. Electronically Signed: Justin Henderson MD at 19:54 EDT , Chest CTA 07/05/21 20:09 IMPRESSION: Abnormal CTA chest examination, with bilateral pulmonary embolism. Electronically Signed: Benton Fofana MD at 21:48 EDT Reading Location ID and State: [facility] / [place] , Service support , ADDENDUM: 07/05/212206 IMPRESSION: Abnormal CTA chest examination, with bilateral pulmonary embolism. N.B. : The above Results were Read Back by Benton Fofana MD to AMY Guadarrama, and understanding confirmed on 07/05/2021 22:00:56 (ET). Electronically Signed: Benton Fofana MD at 21:48 EDT Reading Location ID and State: [facility] / [place] , Service support , 1 view chest obtained interpreted by myself no acute disease process. Radiology in agreement. EKG Initial EKG: Attestation: I personally reviewed and interpreted this EKG as follows: Comments: Sinus tachycardia with a ventricular rate of 116 bpm Discharge Plan Triage Chief Complaint: Weakness ED Provider: Skyler Tang Dx/Rx/DC Orders Clinical Impression: Pulmonary emboli, Cephalalgia, Atrial tachycardia, Generalized weakness Prescriptions: No Action telmisartan 40 mg tablet 20 mg PO DAILY RF: 0 levetiracetam [Keppra] 500 mg Tablet 500 mg PO BID RF: 0 dexamethasone 4 mg tablet 4 mg PO DAILY RF: 0 oxycodone 5 mg Tablet 5 mg PO Q6H PRN (Reason: Pain) RF: 0 potassium chloride 20 mEq tablet extended release 20 meq PO DAILY RF: 0 atorvastatin 20 mg tablet 20 mg PO QHS Qty: 30 RF: 12 Primary Care Provider: Colton Ling Referrals: Colton Ling DO [Primary Care Provider] - Disposition Disposition: Transfer to Another Type HCF
--- NOTE | 2021-07-05 19:30 | RAD_ITS ---
STUDY: X-RAY CHEST REASON FOR EXAM: Female, 60 years old. dyspnea TECHNIQUE: 1 view COMPARISON: 12/24/2020. FINDINGS: The cardiac silhouette is top normal in size. Costophrenic angles are sharp. Lungs are clear. The trachea is midline. There is no pneumothorax. The bones are grossly intact. RAD/Chest 1 View (Portable) IMPRESSION: No acute cardiopulmonary process. Electronically Signed: Justin Henderson MD at 19:54 EDT ,
[2021-07-05 19:52] LABS: D-Dimer Quantitative (DVT/PE) 2.41 FEU/ug/m (0.27-0.49)
[2021-07-05 20:01] LABS: AST(SGOT) 32 U/L (15-37); Alanine Aminotransfer ALT/SGPT 36 U/L (13-56); Albumin, Serum 3.7 g/dL (3.2-5.0); Alkaline Phosphatase 91 U/L (45-117); Anion Gap 9 (5-15); BUN 4 mg/dL (7-18); BUN/Creat Ratio 5.1 RATIO (10-20); Calcium,Total 9.1 mg/dL (8.5-10.1); Chloride 106 mmol/L (98-107); Creatinine, Serum 0.78 mg/dL (0.55-1.02); EST Glomerular Filtration Rate 80 mL/min (>60); Est Glom Filt Rate - Afr Amer 97 mL/min (>60); Estimated Creatinine Clearance 56.47 ml/min; Globulin 3.8 g/dL (2.2-4.2); Glucose 110 mg/dL (74-106); Potassium 3.2 mmol/L (3.5-5.1); Protein, Total 7.5 g/dL (6.4-8.2); Sodium Level 141 mmol/L (136-145); Troponin-I HS 4 pg/mL (3.0-54.0)
[2021-07-05 20:02] LABS: Lactic Acid 1.5 mmol/L (0.4-1.9)
--- NOTE | 2021-07-05 20:09 | CT_ITS ---
We are attempting to reach an attending provider to discuss findings. An addendum with communication details will be sent when the communication is complete. STUDY: CTA CHEST REASON FOR EXAM: Female, 60 years old. Recent brain surgery, dyspnea RADIATION DOSAGE (If Supplied By Facility): CTDIvol = ( 13.47 ) mGy, DLP = ( 448.57 ) mGycm TECHNIQUE: The examination was performed with the intravenous administration of 100mL Isovue-370. Post-processing of the angiographic images was performed, with multiplanar reformation and 3D reconstruction. Individualized dose optimization techniques were used for this CT. COMPARISON: Chest x-ray. FINDINGS: Normal enhancement of the main pulmonary artery and right and left pulmonary arteries. There are multiple filling defects involving peripheral pulmonary arteries on the right and left consistent with embolism . Normal thoracic aorta and visualized great vessels. There is no demonstrated aortic dissection. There are calcifications of the coronary arteries. The right ventricle to the left ventricle ratio is 0.9. Normal mediastinum. Normal hilar regions. Normal visualized trachea and bronchi. The lungs are well expanded. There is no focal infiltrate. There is 0.4 cm calcified right lower lobe granuloma. Normal pleura. Normal chest wall structures. Normal osseous structures. Normal visualized upper abdomen. CT/CTA Chest W/WO Contrast IMPRESSION: Abnormal CTA chest examination, with bilateral pulmonary embolism. Electronically Signed: Benton Fofana MD at 21:48 EDT Reading Location ID and State: [facility] / [place] , Service support ,
[2021-07-05] MEDS: 0.9% Normal Saline 1,000 ML 150 ML IV (20:30)
[2021-07-05 21:02] LABS: Bacteria 0 SEEN /hpf (None Seen); Mucous, Urine 0 SEEN /hpf (<or=2+); Red Blood Cells-Urine 0 SEEN /hpf (0-5); White Blood Cells 0 SEEN /hpf (0-5)
[2021-07-05 21:08] LABS: Absolute Lymphocyte Count 1.01 X10^3/uL (0.83-4.51); Absolute Neutrophil Count 4.3 X10^3/uL (2.0-7.7); Basophil# 0.04 X10^3/uL; Basophil% 0.7 % (0-1); Eosinophil# 0.03 X10^3/uL; Eosinophils% 0.5 % (0-5); Hematocrit 36.7 % (37-47); Hemoglobin 11.8 g/dL (12.0-15.0); Lymphocyte # 1.01 X10^3/ul (0.83-4.51); Lymphocyte % 16.6 % (19-41); Mean Corp Hgb Conc 32.2 g/dL (32-36); Mean Corpuscular Hgb 31.1 pg (27.0-32.0); Mean Corpuscular Volume 96.8 fL (81-99); Mean Platelet Vol. 9.8 fl (6.2-12.0); Monocyte# 0.72 X10^3/uL; Monocyte% 11.8 % (0-10); NRBC Flagged by Analyzer 0 % (0-5); Neutrophil # 4.26 X10^3/uL (2.7-7.7); Neutrophil % 69.9 % (47-70); Platelet Count 342 K/mm3 (150-450); RBC Distribution Width CV 15.9 % (11.6-14.6); RBC Distribution Width SD 55.9 fl (35.1-43.9); Red Blood Count 3.79 M/mm3 (4.2-5.4); White Blood Count 6.1 K/mm3 (4.4-11.0)
[2021-07-05 21:09] LABS: Color, Urine Yellow (Yellow); Glucose, Dipstick Normal (Normal); Ketone-Dipstick 15 mg/dl (Negative); Leukocyte Esterase-Dipstick Negative /ul (Negative); Nitrite-Dipstick Negative (Negative); Occult Blood-Urine Negative /ul (Negative); Protein-Dipstick Negative (Negative); Urine Bilirubin Dipstick Negative (Negative); Urine Clarity Clear (Clear); Urine Urobilinogen Normal (Normal)
[2021-07-05 21:21] LABS: Squamous Epithelial Cells - UA 0-5 SEEN /hpf (5-10)
[2021-07-05 21:46] VITALS: BP 165/96; PULSE 103; RESP 18; O2SAT 98
[2021-07-05 23:09] VITALS: BP 172/89; PULSE 114; RESP 18; O2SAT 96
[2021-07-05 23:30] VITALS: BP 172/89; PULSE 111; RESP 16; TEMP 36.8; O2SAT 99
[2021-07-05] MEDS: Potassium Chloride Oral Tablet 20 MEQ 40 MEQ PO (23:38)
[2021-07-05] MEDS: Enoxaparin 80 MG/0.8 ML Syringe SC (23:56)
[2021-07-06 00:04] VITALS: BP 133/85; PULSE 114; RESP 32; TEMP 36.9; O2SAT 92
[2021-07-06] MEDS: oxyCODONE 5 MG Tablet PO (00:42)
== END 2021-07-06 00:45 | disposition other institution (70) ==
PROVIDERS: Emergency Provider Emergency Medicine; PCP Family Medicine; Visit Provider Emergency Medicine
DX: I26.99 Other pulmonary embolism without acute cor pulmonale (principal); I47.1 Supraventricular tachycardia; R53.1 Weakness; R51.9 Headache, unspecified; I10 Essential (primary) hypertension; E78.5 Hyperlipidemia, unspecified; E87.6 Hypokalemia; G47.33 Obstructive sleep apnea (adult) (pediatric); F32.A Depression, unspecified; Z79.899 Other long term (current) drug therapy
CPT/HCPCS: 70450; 71045; 71275; 74176; 80048; 80053; 81001; 83605; 84484; 85025; 85379; 93005; 96360; 96361; 96372; 99285; J7030; Q9967; A4216

== ENCOUNTER → 2022-05-12 | Outpatient (CLI) | payer OTHER, SELFPAY ==
--- NOTE | 2022-05-12 | EMB_PTH ---
PATIENT: BLOSSOM VERDE LOC: [facility]#:[id number] AGE/SX: 61/F ROOM: RE05/12/[address]: Justyna Yarbrough CNM : 1960 BED: DIS: 05/12/2022 SPEC #: [id number] RECD: 05/12/22 17:34 STATUS: TONNY REEris #: [id number] TAVIA: 05/12/22 00:[address]: Justyna Yarbrough DEPT: SURGICAL PATHOLOGY RECD BY: Yelena Elizabeth ENTERED: 05/15/22 10:12 SP TYPE: ENDOM BX/C EDMUNDO DR: Dr. Colton Ling DO Tissues: Endometrium, NOS Procedures: Surgery Specimen Level IV HEADER OPERATION: Endometrial biopsy PRE-OP DIAGNOSIS: Postmenopausal bleeding TISSUE SUBMITTED: Endometrial tissue MICROSCOPIC DIAGNOSIS Endometrium, biopsy: Consistent with disordered proliferative endometrium. Chronic endometritis. See comment. AM:caridad 05/16/2022 COMMENT The majority of the specimen consists of blood clots. A re-biopsy is recommended if clinically indicated. MICROSCOPIC DESCRIPTION Slides are reviewed. GROSS DESCRIPTION Received is one container labeled with the patient's name and not further designated. The specimen consists of multiple irregular fragments of dark segundo soft tissue that in aggregate measure 3.0 x 2.5 x 0.2 cm. The specimen is totally submitted in one cassette. / AM:caridad 05/15/2022 TC:3 CPT: 61666
== END | disposition home or self-care (01) ==
PROVIDERS: PCP Family Medicine; Visit Provider Advanced Practice Midwife
DX: N95.0 Postmenopausal bleeding (principal); N71.1 Chronic inflammatory disease of uterus
CPT/HCPCS: 88305

== ENCOUNTER → 2022-05-19 | Outpatient (CLI) | payer SELFPAY, OTHER ==
--- NOTE | 2022-05-19 13:18 | US_ITS ---
EXAM: US PELVIS TRANSVAGINAL CLINICAL INDICATION: PMB TECHNIQUE: Transvaginal pelvic ultrasound was performed with grayscale and color Doppler imaging. Transvaginal imaging was used for better evaluation of the endometrium and adnexa. This report was created using [employer] report [employer] technology. COMPARISON: None. FINDINGS: UTERUS/CERVIX: There is a slightly hypoechoic cervical mass which measures 3.8 x 2.2 x 3.0 cm. Uterus measures 11.1 x 6.2 x 8.4 cm. The endometrium is markedly thickened measuring 2.5 cm. Anteverted. RIGHT OVARY: Right ovary is not visualized. LEFT OVARY: The left ovary is not visualized. FREE FLUID: None. BLADDER: Empty bladder which cannot be evaluated with this probe. US/Transvaginal Non- IMPRESSION: Slightly hypoechoic solid cervical mass. Physical examination or MRI may be beneficial. There is marked thickening of the endometrium. Electronically Signed: Mike Mc MD at 0:09 EST ,
== END | disposition home or self-care (01) ==
PROVIDERS: PCP Family Medicine; Visit Provider Advanced Practice Midwife
DX: N95.0 Postmenopausal bleeding (principal)
CPT/HCPCS: 76830

== ENCOUNTER 2022-07-25 09:08 | Day surgery (SDC) | payer SELFPAY, OTHER ==
--- NOTE | 2022-07-12 08:21 | EKG12_ITS ---
Test Reason : PRE OP Blood Pressure : / mmHG Vent. Rate : 079 BPM Atrial Rate : 079 BPM P-R Int : 166 ms QRS Dur : 082 ms QT Int : 376 ms P-R-T Axes : 055 050 056 degrees QTc Int : 431 ms Normal sinus rhythm Nonspecific ST abnormality Abnormal ECG Confirmed by LELAND CABALLERO, AMERICA ([id number]), editor index CON OCONNOR ([id number]) on 07/13/2022 8:57:14 AM Referred By: Kathryn Danielson Confirmed By:AMERICA HA MD
[2022-07-12 09:58] LABS: ALB/GLOB Ratio 0.9 RATIO (0.9-2.4); AST(SGOT) 21 U/L (15-37); Alanine Aminotransfer ALT/SGPT 37 U/L (13-56); Albumin, Serum 3.4 g/dL (3.2-5.0); Alkaline Phosphatase 107 U/L (45-117); Anion Gap 1 (5-15); BUN 15 mg/dL (7-18); BUN/Creat Ratio 22.2 RATIO (10-20); Calcium,Total 8.9 mg/dL (8.5-10.1); Chloride 110 mmol/L (98-107); Creatinine, Serum 0.68 mg/dL (0.55-1.02); EST Glomerular Filtration Rate 95 mL/min (>60); Est Glom Filt Rate - Afr Amer 115 mL/min (>60); Globulin 3.6 g/dL (2.2-4.2); Glucose 100 mg/dL (74-106); Potassium 3.7 mmol/L (3.5-5.1); Sodium Level 140 mmol/L (136-145)
[2022-07-12 10:30] LABS: Hematocrit 40.4 % (37-47); Hemoglobin 12.8 g/dL (12.0-15.0); Mean Corp Hgb Conc 31.7 g/dL (32-36); Mean Corpuscular Hgb 30.7 pg (27.0-32.0); Mean Corpuscular Volume 96.9 fL (81-99); Mean Platelet Vol. 10.6 fl (6.2-12.0); Platelet Count 299 K/mm3 (150-450); RBC Distribution Width CV 12.9 % (11.6-14.6); RBC Distribution Width SD 46.3 fl (35.1-43.9); Red Blood Count 4.17 M/mm3 (4.2-5.4); White Blood Count 5.8 K/mm3 (4.4-11.0)
[2022-07-25] VITALS (9 sets, daily range): BP systolic 109–126; BP diastolic 59–77; PULSE 60–74; RESP 16; TEMP 36.3–37.6; O2SAT 92–100; BMI 36.2
--- NOTE | 2022-07-25 | UTC_PTH ---
PATIENT: BLOSSOM VERDE LOC: [facility] U#:[id number] AGE/SX: 61/F ROOM: RE07/25/[address]: Dr. Kathryn Danielson DO : 1960 BED: DIS: 07/25/2022 SPEC #: [id number] RECD: 07/25/22 13:30 STATUS: TONNY REEris #: [id number] TAVIA: 07/25/22 00:[address]: Kathryn Danielson DEPT: SURGICAL PATHOLOGY RECD BY: Kaley Hutchison ENTERED: 07/25/22 14:35 SP TYPE: NE CUR OTHR DR: Dr. Colton Ling DO Tissues: A - Endometrium, NOS B - Endocervical C - Endometrium, NOS Procedures: Frozen Section (charge) Surgery Specimen Level IV HEADER OPERATION: Hysteroscopy and endocervical curettage PRE-OP DIAGNOSIS: Cervical mass, chronic endometriosis, postmenopausal bleeding TISSUE SUBMITTED: A - Endometrial biopsy, frozen section, B - Endocervical curettage, frozen section, C - Endometrial sampling FROZEN SECTION DIAGNOSIS A. Endometrium, biopsy: Stromal tissue, blood clots and rare benign squamous mucosa. B. Endocervix, curettage: Atypical complex glandular proliferation. AM: 07/25/2022 MICROSCOPIC DIAGNOSIS A. Endometrium, biopsy: Fragments of benign lower uterine endometrial tissue. Clotted blood. Cellular debris with infarction/autolytic changes. B. Endocervix, curettings: Complex atypical glandular proliferation suspicious for endometrial adenocarcinoma. C. Endometrium, biopsy: Endometrial endometrioid adenocarcinoma, FIGO grade I. No MSI detected. See Comment. AM: 07/27/2022 COMMENT Case is reviewed by Dr. Kraft of [employer] (consult report in EMR). MSI results will be reported separately. C. Immunohistochemistry ([id number]) supports the above diagnosis. Case has been reviewed in consultation with Dr. Pa who concurs with the above diagnosis. IDC:[email or web address] MICROSCOPIC DESCRIPTION Slides are reviewed. GROSS DESCRIPTION A - Received fresh for frozen section consultation labeled with the patient's name is a specimen designated endometrial biopsy. The specimen consists of multiple fragments of red-segundo soft tissue measuring in aggregate 2.0 x 2.0 x 0.2 cm. The specimen is totally submitted for frozen section consultation in one block. B - Received fresh for frozen section consultation labeled with the patient's name is a specimen designated endocervical curettings. The specimen consists of clotted blood measuring 0.7 x 0.5 x 0.1 cm. The specimen is totally submitted for frozen section consultation in one block. C - Received in fixative is one container labeled with the patient's name and designated endometrial sampling. The specimen consists of multiple irregular fragments of segundo-pink soft tissue mixed with blood clot that in aggregate measure 5.0 x 3.0 x 0.8 cm. The entire specimen is submitted in four cassettes. / SJ:caridad 07/26/2022 TC:0 CPT:92010 x 2, 74308 x 3
--- NOTE | 2022-07-25 | IMM_PTH ---
PATIENT: BLOSSOM VERDE LOC: [facility] U#:[id number] AGE/SX: 61/F ROOM: RE07/25/[address]: Dr. Kathryn Danielson DO : 1960 BED: DIS: 07/25/2022 SPEC #: [id number] RECD: 08/01/22 12:26 STATUS: TONNY REQ #: [id number] TAVIA: 07/25/22 00:[address]: Kathryn Danielson DEPT: IMMUNOHISTOCHEMISTRY RECD BY: Kaley Hutchison ENTERED: 08/01/22 12:28 SP TYPE: IMMUNO OTHR DR: Dr. Colton Ling DO Tissues: C - Endometrium, NOS Procedures: MSH2 (add) MLH-1 (add) MSH6 (add) Anti-PMS2 (add) VARGHESE-2 (add) HER2 LAVINIA (add) P53 (add) KI-67 (initial) PHYSICIAN & INSTITUTION [place] [id number] SPECIMEN INFORMATION: Tissue Source: C ? Endometrial sampling Clinical Info: Cervical mass, chronic endometriosis, postmenopausal bleeding Specimen Number: [id number] C1 CPT code: 48132, 64946 x7 METHODOLOGY: Deparaffinized sections of prefer/formalin-fixed tissue or PAP/DQ stained slides are incubated with monoclonal/polyclonal antibodies/oligonucleotide probes. Localization is made via biotin free immunoperoxidase method. Appropriate controls are performed and reacted as expected. Results on target cell population are indicated in the following table: RESULTS: ANTIBODY / CLONE RESULT Block C1 Her-2neu (CB11) negative VARGHESE-2 (SP21) positive MLH-1 (M1) positive MSH2 (25D12) positive MSH6 (44) positive PMS2 (KTM5765) positive Ki-67 (30-9) positive, 10% P53 (DO-7) negative These tests were developed and their performance characteristics determined by [facility]. They may not have been cleared or approved by the U.S. Food and Drug Administration. The FDA has determined that such clearance or approval is not necessary. The above immunohistochemical/dualISH markers are ordered and reviewed by the Pathologist. INTERPRETATION: C. Endometrial sampling: Endometrioid adenocarcinoma. Result of Microsatellite Instability Study: Negative (no loss of mismatch protein; no microsatellite instability detected). AM:caridad 08/02/2022
[2022-07-25] MEDS: Lactated Ringers 1,000 ML 15 ML IV (09:51)
--- NOTE | 2022-07-25 10:48 | HP.PCM_ITS ---
History and Physical Date of Admission: 07/25/22 Intake Vital Signs ? 06/09/2308:24 07/12/2308:36 07/12/2308:36 Height 5 ft 5 ft 5 ft Weight: ? 193 lb 6 oz ? BMI ? 37.8 ? BP ? 126/79 H ? Intake Visit Reasons:?D&C preop labs can be done today [employer] Supervisor Required: No Is patient in pain?: No Allergies No Known Allergies Allergy (Verified 07/12/22 09:36) Medications telmisartan 40 mg tablet 20 mg PO DAILY 12/06/20 [History Confirmed 07/12/22] atorvastatin 20 mg tablet 20 mg PO QHS #30 tabs 04/08/21 [Rx Confirmed 07/12/22] potassium chloride 20 mEq tablet,extended release 20 meq PO DAILY 07/05/21 [History Confirmed 07/12/22] ferrous sulfate 325 mg (65 mg iron) tablet (Feosol) 325 mg PO BID 05/12/22 [History Confirmed 07/12/22] megestrol 20 mg tablet 20 mg PO BID #60 tabs 07/12/22 [Rx Confirmed 07/12/22] Post menopausal: No Patient : No : No PFSH Medical History? Depressive disorder Depressive disorder, not elsewhere classified Essential hypertension History of pulmonary embolism Hyperlipidemia Hypokalemia KATHRYN on CPAP Surgical History? History of left heart catheterization (LHC) (~05/09/21) S/P cervical spinal fusion Family History? Father CAD (coronary artery disease) History of coronary artery bypass surgery Heart valve replacedMother?? Pulmonary fibrosis Social History? household members:? spouse housing:? house number of children:? 7 Smoking Status:? Never smoker alcohol intake:? never substance use type:? does not use caffeine:? No do you feel safe at home:? Yes additional social history:? - Suhail JacoboSandra HPI D&C preop labs can be done today Details: BLOSSOM VERDE is a 61 year old who presents for pre-op exam for abnormal bleeding. ultrasound showed a significantly thickened endometrium measuring over 2 cm along with a 2x4 cm cervical mass of unknown type. She is status post biopsy showing chronic endometritis and proliferative endometrium. Pt was given treatment options of D&C with cervix biopsy vs hysterectomy. She is reluctant to have a hysterectomy due to her recent brain surgery a year ago where she suffered with post op bilateral PE's and states that she has not fully recovered yet. History ? ? ? 7 ? Elective abortions ? Hx Para ? ? ? 7A ? Spontaneous abortions ? Hx # Term Pregnancies ? Ectopic pregnancies ? Hx # Pregnancies ? Multiple births ? # of living children ? ROS Const ROS Unobtainable: All systems reviewed & are unremarkable except as noted in H Resp Resp: Reports system reviewed and no additional complaints, except as documented; Denies cough GI GI: Reports as per HPI Psych Psych: Reports system reviewed and no additional complaints, except as documented Exam Const General: cooperative, healthy appearing, comfortable and no acute distress Resp Effort & Inspection: normal respiratory effort Skin General: no rashes or lesions noted Psych Appearance: grossly normal Speech and Movement: speech and movement normal Coding Level of Care Code Off vis,est,level 4 Diagnoses Cervical mass? N88.8 Chronic endometritis? N71.1 Postmenopausal bleeding? N95.0 Hypokalemia? E87.6 Essential hypertension? I10 Hyperlipidemia? E78.5 KATHRYN on CPAP? G47.33; Z99.89 Abnormal ECG? R94.31 Fatigue? R53.83 Dyspnea on exertion? R06.00 Assessment and Plan Assessment and Plan (1) Cervical mass: ?Status:?Acute (2) Chronic endometritis: ?Status:?Chronic ?Comment: doxycycline (3) Postmenopausal bleeding: ?Status:?Acute ?Comment: transvaginal ultrasound ordered EMB performed today at visit, moderate amount of bleeding form cervix noted during procedure To start medroxyprogesterone 5mg-10mg daily. Currently on iron supplement. Follow up with physician after results of US and EMB obtained Instructed to go to ER if soaking a pad an hour x2 hours or starts to feel hemodynamically unstable with heavy bleeding. (4) Hypokalemia: ?Status:?Acute (5) Essential hypertension: ?Status:?Chronic (6) Hyperlipidemia: ?Status:?Chronic (7) KATHRYN on CPAP: ?Status:?Acute (8) Abnormal ECG: ?Status:?Chronic (9) Fatigue: ?Status:?Resolved (10) Dyspnea on exertion: ?Status:?Resolved ? ? ? Medications: New megestrol 20 mg? PO BID 60 tabs 0RF ? ? Plan pt was sent for pre-op clearance and letter returned from her PCP deferring care to us. After discussing the patient's diagnosis and treatment plan options, patient wishes to proceed with surgical management.? I have discussed with the patient the risks, benefits, and alternatives of the procedure which include but are not limited to risks of anesthesia, bleeding, infection, possible damage to bowel, bladder, or surrounding vasculature which could lead to additional surgery to evaluate any complications.? Patient agrees to procedure and wishes to proceed.? ACOG/uptodate references given for additional information regarding procedure.? plan for hysteroscopy D&C and starting megace due to ongoing bleeding. pt may need to take this after surgery, however with risk of clot may recommend alternative options such as an IUD
[2022-07-25] MEDS: Lidocaine 1% (20 ml mdv) 20 ML Vial (13:20)
--- NOTE | 2022-07-25 13:40 | PCM.OP.BLANK ---
Problems Associated Problem List Diagnoses (1) Postmenopausal bleeding: (2) Cervical mass: Operative Report Date of Procedure: 07/25/22 preoperative diagnosis: postmenopausal bleeding and mass in cervix on ultrasound. Postoperative diagnosis: Postmenopausal bleeding and mass in cervix on ultrasound Surgeon: Dr. Kathryn Danielson DO EBL: 30cc urine output: 15cc findings: stenotic cervix, mid cervical firm mass, difficult uterus to distend, excessive tissue within the endometrium specimens removed: endometrial sample through lavage only Details of the procedure: Patient was prepped and draped in a normal sterile fashion under MAC anesthesia. A weighted speculum was placed in the vagina and the anterior lip of the cervix was grasped with a single-tooth tenaculum. A paracervical block was placed with 1% lidocaine. The cervix was noted to be stenotic, however with gentle manipulation using a lucy forceps device the adhesions were broken down an a hysteroscope (symphion) was inserted gently in the os. The saline solution was then turned on and using hydro disction the uterine cavity was entered. The pressure on the fluid was matched to the patient's MAP, however good distention of the cavity was not achieved. An ultrasound was used to rule out uterine perforation and only minimal intraabdominal, trace fluid was seen. However, perforation could not be completely ruled out and there fore a curettage was not performed. irrigation was performed and some tissue from the uterus was sucked back into the tube into the collection system for pathology. Using my gloved finger, the cervix was felt to have a large palpable mass at my fingertip. A gentle endocervical curettage was performed and sent for frozen section. Pathology reported that this appeared to have atypical glandular cells and waiting on permanent section. At this time, the procedure was ended prematurely for the patient's safety without getting a sharp curettage due to risk of perforation. Bleeding was minimal at the end of the procedure. Multi Select Codes Urinary/Genital Urinary/Genital CPT Codes: 12136 Hysteroscopy, diagnostic
--- NOTE | 2022-07-25 13:57 | DCINST_ITS ---
Discharge Instructions Diet Discharge Diet: No restrictions Activity Discharge Activity: Return to Normal Activity, May Shower and May Take a Tub Bath (after 1 week) May resume sexual activity in: 1-2 weeks Weight Bearing Status: Weight bearing as tolerated Lifting Restrictions: none Dressing / Incision Call your doctor if you observe: Fever of 101 or Higher, Using more than 1 pad per hour, Shortness of breath and Uncontrolled pain Follow Up Care Please Follow Up With: Kathryn Danielson DO When: Call [phone] to schedule appointment. Test Results: Test results from this visit will be discussed in further detail at your follow- up appointment, if applicable. Discharge Plan Admission Primary Reason for Your Visit: hysteroscopy Attending Provider: Kathryn Danielson Primary Care Provider: Colton Ling Discharge Orders/Prescriptions Prescriptions: New naproxen 500 mg tablet 500 mg PO BID PRN (Reason: pain) Qty: 30 0RF megestrol 40 mg tablet 40 mg PO DAILY Qty: 90 2RF Continued telmisartan 40 mg tablet 20 mg PO DAILY potassium chloride 20 mEq tablet extended release 20 meq PO DAILY ferrous sulfate [Feosol] 325 mg (65 mg iron) tablet 325 mg PO BID Qty: 30 0RF No Action megestrol 20 mg tablet 20 mg PO BID Qty: 60 0RF Referrals / Follow Up: Colton Ling DO [Primary Care Provider] - Disposition Disposition (needs filled in before D/C Order can be placed): Home, Self Care
[2022-07-25] MEDS: HYDROcodone Bitartrate/Apap 5/325 Tablet PO (14:36)
== END 2022-07-25 15:53 | disposition home or self-care (01) ==
LOC: SDC 09:09 → AC 09:10
PROVIDERS: PCP Family Medicine; Referring Provider Obstetrics & Gynecology; Visit Provider Obstetrics & Gynecology
PROC: 0UB98ZZ Excision of Uterus, Via Natural or Artificial Opening Endoscopic (ICD-10-PCS; CPT 58558; principal; 2022-07-25 12:55)
DX: C54.1 Malignant neoplasm of endometrium (principal); N95.0 Postmenopausal bleeding; N88.8 Other specified noninflammatory disorders of cervix uteri; N71.1 Chronic inflammatory disease of uterus; N88.2 Stricture and stenosis of cervix uteri; I10 Essential (primary) hypertension; E87.6 Hypokalemia; G47.33 Obstructive sleep apnea (adult) (pediatric); R94.31 Abnormal electrocardiogram [ECG] [EKG]; Z79.899 Other long term (current) drug therapy; Z86.711 Personal history of pulmonary embolism
CPT/HCPCS: 58558; 57505; 36415; 80053; 85027; 86850; 86900; 86901; 88305; 88331; 88341; 88342; 93005; J7120; J2405

== ENCOUNTER → 2022-10-18 | Outpatient (CLI) | payer SELFPAY, OTHER ==
--- NOTE | 2022-10-18 15:51 | MRI_ITS ---
EXAM: MR HEAD WITHOUT AND WITH INTRAVENOUS CONTRAST CLINICAL INDICATION: F/U NEOPLASM TECHNIQUE: Multiplanar and multisequence MR images of the brain were obtained without and with intravenous contrast. RADIATION DOSE: CTDIvol = mGy, DLP = mGy-cmContrast: IV 17CC CLARISCAN COMPARISON: MRI brain June 01, 2021, and prior CT brain July 02, 2021 FINDINGS: BRAIN AND EXTRA-AXIAL SPACES: Postop changes and encephalomalacia at the inferior to mid medial frontal lobes in the location of large prior mass and edema. No intra- or extra-axial hemorrhage. No significant restricted diffusion, slight increase signal intensity in the frontal lobes on diffusion-weighted images. SELLA: Unremarkable. Normal sella turcica, pituitary gland, infundibular stalk, optic chiasm and hypothalamus. AUDITORY SYSTEM: Unremarkable. The internal auditory canals are patent. BONES/JOINTS: Similar appearance of signal void consistent with bony hyperostosis versus calcified component of mass at the planum sphenoidale measuring about 1.4 cm x 3 cm transverse in the midline, including the thin visible tail. There is adjacent intensely enhancing en plaque soft tissue meningioma component of roughly 3 cm transverse and 1.5 cm craniocaudal best seen on the coronal images, the bulk of the residual mass roughly 1.8 cm AP as measured on axial images. SINUSES: Unremarkable as visualized. Clear. MASTOID AIR CELLS: Unremarkable as visualized. Clear. ORBITS: Unremarkable as visualized. Both globes, extraocular muscles, optic nerves and retrobulbar fat appear unremarkable. VASCULATURE: Signal void in the dural venous sinuses on T1-weighted images. MRI/Brain W/WO Contrast IMPRESSION: 1. Residual or recurrent meningioma at the deep posterior prior location. 2. Stable prominent bony hyperostosis versus densely calcified portion of mass at the planum sphenoidale. Immediately more posterior residual intensely enhancing soft tissue component of typical meningioma, immediately anterior to the pituitary fossa and optic chiasm along the skull base. 3. 1.4 cm craniocaudal, 3 cm transverse, 1.8 cm AP at the location of the most posterior mass component on prior MRI. The measurements do not include a thin presumed enhancing en plaque layer extending over the bony hyperostosis anteriorly. 4. Postoperative change and volume loss of the surrounding frontal lobes. 5. New mildly dilated frontal horns, apparently compensatory dilatation. 6. No intracranial hemorrhage. Electronically Signed: Caitlin Candelario MD at 6:27 EDT ,
[2022-10-19 06:52] LABS: CREATININE FINGERSTICK 1.21 mg/dL (0.55-1.02); EGFR FINGERSTICK 48 mL/min (>60)
== END | disposition home or self-care (01) ==
LOC: MRI 15:27
PROVIDERS: PCP Family Medicine
DX: D32.9 Benign neoplasm of meninges, unspecified (principal)
CPT/HCPCS: 70553; A9575

== ENCOUNTER → 2023-09-26 | Outpatient (CLI) | payer SELFPAY, OTHER ==
--- NOTE | 2023-09-26 12:50 | MRI_ITS ---
STUDY: MRI BRAIN WITH AND WITHOUT CONTRAST REASON FOR EXAM: Female, 63 years old. MENINGIOMA TECHNIQUE: Standardized multiplanar fat and water weighted pulse sequences were obtained. IV Yes Clariscan was administered for the contrast portion of the examination. COMPARISON: 10/18/2022 FINDINGS: There is mild cerebral atrophy with widening of the extra-axial spaces and ventricular dilatation. There are multiple white matter hyperintensities, distributed throughout the deep white matter tracts of the cerebral hemispheres, consistent with moderate chronic white matter ischemic changes. Status post bilateral frontal craniotomy with suggestive encephalomalacia and gliosis in the frontal lobes. There is no evidence for recent intracranial ischemia or other cause of cytotoxic edema on diffusion weighted imaging (DWI). Normal T2* images of the brain without demonstrated susceptibility artifact. There is no demonstrated hemosiderin stain. Normal bilateral basal ganglia. Normal thalami. There is no extra-axial fluid accumulation. Normal flow voids within the major intracranial circulation suggesting patency by spin echo criteria. Normal venous enhancement. There is no change in the 3 cm pleural-based oval mass of the floor of the frontal cranial fossa which demonstrates homogeneous contrast-enhancement consistent with residual meningioma. Normal sella turcica, pituitary gland, infundibular stalk, optic chiasm and hypothalamus. Normal tectal plate and pineal gland. Normal midbrain, keshia and medulla. Normal cerebellum. Normal basal cisterns. Normal bilateral temporal bones. Normal bilateral internal auditory canals. No demonstrated orbital abnormality, within the constraints of a routine brain study. Normal visualized paranasal sinuses. Normal calvarium and skull base. Normal visualized soft tissue structures. Normal visualized upper cervical spine. MRI/Brain W/WO Contrast IMPRESSION: 1. No change in residual meningioma of the floor of the frontal cranial fossa. 2. No change in evidence of malacia and gliosis of the frontal lobes at the site of prior craniotomy. 3. Mild atrophy and moderate microangiopathic gliosis but no acute infarct. Electronically Signed: Ravinder Gabriel MD at 15:43 EDT ,
[2023-09-26 13:13] LABS: CREATININE FINGERSTICK < 1.0 mg/dL (0.55-1.02)
== END | disposition home or self-care (01) ==
LOC: MRI 12:39
PROVIDERS: PCP Family Medicine; Referring Provider Psychiatry & Neurology Neurology; Visit Provider Psychiatry & Neurology Neurology
DX: D32.9 Benign neoplasm of meninges, unspecified (principal)
CPT/HCPCS: 70553; A9575